=== PATIENT | male | born 1985 ===

== ENCOUNTER 2018-06-10 09:21 | Emergency (ER) | payer OTHER ==
[2018-06-10 09:37] VITALS: BP 121/81
--- NOTE | 2018-06-10 10:01 | UC ---
Dental HPI - HPI Summary HPI Summary: 32-year-old male comes in with a chief complaint of left-sided jaw pain and inability to open his mouth completely. About 2 weeks ago he started with a sore throat. He had some pain in the left jaw at that time. Because of the sore throat went away and the trismus on the left side remained. He is able to open his mouth enough to brush his teeth and to eat soup. Denies any difficulty swallowing or shortness of breath. He did have dental work several months ago on the left side. No fevers no neck pain. Did take some naproxen which decreases the pain on the left jaw but it does not help open the jaw more. - History of Current Complaint Chief Complaint: UCGeneralIllness Stated Complaint: JAW COMPLAINT Time Seen by Provider: 06/10/18 09:42 Pain Intensity: 8 - Allergies/Home Medications Allergies/Adverse Reactions: Allergies Allergy/AdvReac Type Severity Reaction Status Date / Time No Known Allergies Allergy Verified 06/10/18 09:37 PMH/Surg Hx/FS Hx/Imm Hx Previously Healthy: Yes - Surgical History Surgical History: None - Family History Known Family History: Positive: Non-Contributory - Social History Alcohol Use: Occasionally Substance Use Type: None Smoking Status (MU): Never Smoked Tobacco Review of Systems All Other Systems Reviewed And Are Negative: Yes Constitutional: Positive: Negative Skin: Positive: Negative Eyes: Positive: Negative ENT: Positive: Other - SEE HPI Respiratory: Positive: Negative Cardiovascular: Positive: Negative Gastrointestinal: Positive: Negative Motor: Positive: Decreased ROM Neurovascular: Positive: Negative Musculoskeletal: Positive: Negative Neurological: Positive: Negative Psychological: Positive: Negative Is Patient Immunocompromised?: No Physical Exam Triage Information Reviewed: Yes Appearance: Well-Appearing, No Pain Distress, Well-Nourished Vital Signs: Initial Vital Signs Temp 98 F 06/10/18 09:33 Pulse 56 06/10/18 09:33 Resp 16 06/10/18 09:33 BP 121/81 06/10/18 09:33 Pulse Ox 100 06/10/18 09:33 Vital Signs Reviewed: Yes Eye Exam: Normal Eyes: Positive: Conjunctiva Clear ENT: Positive: Pharynx normal, TMs normal, Trismus - opens mouth approx 1.5 - 2.0 cm. Stops secondary to pain left jaw. TML non tender to palpation. No dental caries or pharyngeal/gingival swelling. No swelling palpated on face or neck., Uvula midline. Negative: Muffled voice, Hoarse voice Neck exam: Normal Neck: Positive: Supple Respiratory: Positive: Lungs clear, Normal breath sounds, No respiratory distress Cardiovascular: Positive: RRR Musculoskeletal: Positive: Strength Intact Neurological Exam: Normal Neurological: Positive: Alert, Muscle Tone Normal Psychological Exam: Normal Psychological: Positive: Age Appropriate Behavior Skin Exam: Normal Dental Complaint Course/Dx - Course Course Of Treatment: Because the trismus started with a sore throat we will treat with an antibiotic although infection is not obvious. Patient will continue with nonsteroidal anti-inflammatories. Plan is to follow-up with his dentist and or ENT. Reevaluation sooner if worsen. We discussed getting a CT scan today and the patient declined at this time. - Differential Dx/Diagnosis Provider Diagnosis: Trismus Discharge - Sign-Out/Discharge Documenting (check all that apply): Patient Departure All imaging exams completed and their final reports reviewed: No Studies - Discharge Plan Condition: Stable Disposition: HOME Prescriptions: Amoxicillin/Clavulanate TAB* [Augmentin TAB 875*] 875 mg PO BID #20 tab Patient Education Materials: Temporomandibular Disorder (ED) Referrals: Shayla Butts MD [Primary Care Provider] - Kaden aTng MD [Medical Doctor] - Additional Instructions: FOLLOW UP WITH YOUR DENTIST OR ENT FOR YOUR TRISMUS. GET RECHECKED SOONER FOR ANY WORSENING OF YOUR CONDITION OR QUESTIONS OR CONCERNS. - Billing Disposition and Condition Condition: STABLE Disposition: Home
== END 2018-06-10 10:05 | disposition home or self-care (01) ==
LOC: UCEAST 09:21
DX: R25.2 Cramp and spasm (principal)
CPT/HCPCS: 99202; G0463